=== PATIENT | female | born 1975 | race Two or more races ===

== ENCOUNTER 2019-11-08 22:42 | Emergency (ER) | payer OTHER ==
[~2019-11-08] VITALS: Ht 167.6 cm; Wt 67.1 kg
[2019-11-08] MEDS ORDERED: LEVOTHYROXINE25 MCG (23:53)
== END 2019-11-09 11:46 | disposition home or self-care (01) ==
LOC: ER 22:42
DX: K51.80 Other ulcerative colitis without complications (principal)